=== PATIENT | male | born 1960 | race Caucasian/White ===

== ENCOUNTER 2025-02-26 16:10 | Emergency (ER) | payer OTHER, SELFPAY ==
--- NOTE | 2025-02-26 16:12 | ED.URI ---
HPI - URI/Sore Throat General Chief Complaint: Neck Pain/Injury Stated Complaint: Right Side Neck Pain,Swelling Time Seen by Provider: 02/26/25 16:11 Source: patient Mode of arrival: ambulatory Limitations: no limitations History of Present Illness HPI Narrative: Tate is a 64-year-old male patient presenting to the clinic today with complaints of right side neck swelling and pain x2 days. He reports the swelling has gone down some. Denies sore throat, dental pain, sinus congestion, URI symptoms, or fever. States he has been feeling sweaty and overall not feeling well. Coughing up some gelatinous phlegm, Feels as though he has a knot over his right eustachian tube. MD elicited complaint: sore throat and nasal congestion Related Data Allergies Allergy/AdvReac Type Severity Reaction Status Date / Time Penicillins Allergy Intermediate HIVES Verified 02/26/25 16:12 Review of Systems Review of Systems: Pertinent positives per HPI. Patient denies any fever, chills, rash, headache, visual changes, dizziness, cough, shortness of breath, chest pain, palpitations, nausea, vomiting, diarrhea, constipation, abdominal pain, or any urinary issues. PMFSH Comments At the time of my signature, I reviewed and agree with the nursing past medical, surgical, social, and family history. There is no relevant family history pertinent to the patient complaint. Exam Narrative: General: Well-developed, well nourished, in no apparent distress Head: Normocephalic, atraumatic Eyes: Pupils equally round and reactive to light bilaterally, EOM intact, sclera and conjunctive clear, no discharge, lids normal Ears: TMs intact, congested, and opaque, ear canals clear, no drainage, grossly hearing normal. Nose: Nares patent, clear discharge, no inflammation, no sinus tenderness. Mouth: Oral pharynx red with bilateral tonsillar enlargement without lesions or masses, good dentition, MMM. Neck: Supple, trachea midline, enlargement of right anterior cervical nodes, no thyroid masses or goiter palpable. Cardio: Regular rate and rhythm, s1 and s2 normal, no murmur appreciated. Resp: Clear to auscultation bilaterally, no rhonchi, rales, wheezing or rubs Course Course Emergency Course: Portions of this record may have been created with voice recognition software. Level of Care: Express Care Visit Vital Signs Vital signs: Vital Signs Temperature 36.9 C 02/26/25 16:22 Pulse Rate 89 02/26/25 16:22 Respiratory Rate 18 02/26/25 16:22 Blood Pressure 169/86 H 02/26/25 16:22 Pulse Oximetry 99 02/26/25 16:22 Oxygen Delivery Room Air 02/26/25 16:22 Temperature 36.9 C 02/26/25 16:22 Pulse Rate 89 02/26/25 16:22 Respiratory Rate 18 02/26/25 16:22 Blood Pressure 169/86 H 02/26/25 16:22 Pulse Oximetry 99 02/26/25 16:22 Oxygen Delivery Room Air 02/26/25 16:22 Vital signs reviewed MDM - URI/Sore Throat MDM Narrative Medical decision making narrative: At the time of visit patient is resting comfortably on the exam table. Patient appears to be nontoxic. Complaints of right side neck swelling and pain x2 days. He reports the swelling has gone down some. Denies sore throat, dental pain, sinus congestion, URI symptoms, or fever. States he has been feeling sweaty and overall not feeling well. Coughing up some gelatinous phlegm, Feels as though he has a knot over his right eustachian tube. On exam patient has bilateral tonsillar enlargement with right-sided anterior cervical lymphadenopathy, clear nasal drainage. TMs intact, congested, and opaque. Strep test was ordered. Labs: Strep test was performed and negative in the clinic today. We will send strep for culture. Plan: Patient has right-sided cervical lymphadenopathy. Recommend follow-up with PCP in 1 week if symptoms persist for labs last ultrasound. If symptoms worsen recommend going to the emergency room. Supportive measures were discussed with the patient and they voiced understanding discharge instructions and agrees to treatment plan. Return precautions reviewed Differential Diagnosis Differential diagnosis: Likely upper respiratory infection, otitis media, sinusitis, viral infection, bronchitis, influenza, pharyngitis and other (Cervical lymphadenitis) Lab Data Labs: Lab Results 02/26/25 02/26/25 Range/Units 16:46 16:46 POC Grp A Strep Screen Negative Negative (Negative) Discharge Plan Discharge Clinical Impression: Acute cervical lymphadenitis Patient Disposition: Home Condition: Stable Instructions: Antibiotic Form, Lymphadenopathy (ED) Additional Instructions: No sign of bacterial infection in the clinic today. Strep test was negative in the clinic today. We will send strep for culture. Cervical lymph node swelling can be also caused by viruses. Increase fluids and stay well hydrated May take Tylenol/Motrin as needed for pain as per bottle directions. If symptoms persist more than 7-10 days recommend follow-up with your PCP for blood work and ultrasound. Patient Language: Sammarinese Follow-up/Referrals: UNKNOWN,DOCTOR [Non-Staff] Time of Disposition: 16:52 Quality NIHSS Nursing Documentation ED NIHSS nursing documentation: reviewed/agree
--- OUTSIDE RECORDS SUMMARY | 2025-02-26 16:13 | XMS_ITS | Clinical Summary ---
Author Organization [facility] perial Address [address] [place] [address] Phone Care Team Providers Care Employee Counselor Name Role Phone Radha An MD Primary Care Provider Allyson vailable Allergies Active Allergy Reactions Criticality Noted Date Comments Amoxicillin Rash Low 01/15/2018 Medications No known medications Active Problems Problem Noted Date Diagnosed Date Cigarette dependence 04/17/2018 Encounters Date Type Department Care Team Description 01/26/2025 External Device Data [facility]STRACTION Provider, Abstract 12/29/2024 External Device Data [facility] Provider, Abstract 12/01/2024 External Device Data [facility] Provider, Abstract 11/26/2024 External Device Data [facility] Provider, Abstract from Last 3 Months Family History Medical History Relation Name Comments No Known Problems Brother Cancer Father prostate Stroke Father Cancer Mother lymphoma Relation Name Status Comments Brother Father Mother Social History Tobacco Use Types Packs/Day Years Used Date Smoking Tobacco: Every Day Cigarettes 0.8 8 Smokeless Tobacco: Never Tobacco Cessation:Ready to Q uit: Not Asked; Counseling Given: Not Answered Alcohol Use Standard Drinks/Week Comments No 0 (1 standard drink = 0.6 oz pur e alcohol) Sex and Gender Information Value Date Recorded Sex Assigned at Not on file Legal Sex Male 4:12 PM CDT Gender Identity Not on file Sexual Orientation Not on file Last Filed Vital Signs Vital Sign Reading Time Taken Comments Blood Pressure 150/100 06/05/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 Pulse 80 06/05/2024 5:24 PM SECURITY SYSTEMS MANAGER Temperature 36.4 C (97.6 F) 06/05/2024 5:21 PM SECURITY SYSTEMS MANAGER Respiratory Rate 14 06/05/2024 5:21 PM SECURITY SYSTEMS MANAGER Oxygen Saturation 96% 06/05/2024 5:21 PM SECURITY SYSTEMS MANAGER Inhaled Oxygen Concentration - - Weight 77.1 kg (170 lb) 06/05/2024 5:21 PM SECURITY SYSTEMS MANAGER Height 167.6 cm (5' 6) 06/05/2024 5:21 PM SECURITY SYSTEMS MANAGER Body Mass Index 27.44 06/05/2024 5:21 PM SECURITY SYSTEMS MANAGER Plan of Treatment Health Maintenance Due Date Last Done Comments Pre-Diabetes and Diabetes Screening 1960 DTAP/TDAP/TD VACCINES (1 - Tdap) 12/12/1979 FIT-DNA Q 3 years 2005 FIT/FOBT Q 1 year 2005 Flex Sig/CT Colonography Q 5 years 2005 ZOSTER VACCINE (1 of 2) 2010 INFLUENZA VACCINE (#1) 2025 COLORECTAL SCREENING 10/27/2028 10/27/2018, 10/27/2018, 10/27/2018 Colorectal Cancer Screening 10/27/2028 RSV VACCINE (60+ or ) (1 - 1-dose 75+ series) 12/12/2035 Procedures Procedure Name Priority Date/Time Associated Diagnosis Comments ENDOSCOPY, COLON, SCREENING Routine 10/27/2018 Blood in stool from Last 3 Months or Most Recently Relevant to Health Maintenance Results * ENDOSCOPY, COLON, SCREENING (10/27/2018) Radha An MD GI PROCEDURE ORDERABLES nal Result [facility] CLIA# [id number] [address] [place] [address] from Last 3 Months or Most Recently Relevant to Health Maintenance Insurance [employer] PPO [id number] [employer] [facility] [id number] Care Teams Employee Counselor Relationship Specialty Start Date End Date Radha An MD PCP - General Family Practice 04/17/18
--- OUTSIDE RECORDS SUMMARY | 2025-02-26 16:13 | XMS_ITS | Clinical Summary ---
Author Organization [facility] Address [address] [place] [address] Care Team Providers Care Auto Washer Name Role Phone Radha An MD Primary Care Provider [phone] Allergies Active Allergy Reactions Criticality Noted Date Comments Amoxicillin Hives Medium 10/17/2018 Medications methylPREDNISol one (MEDROL DOSEPACK) 4 mg Dosepack Take 4 mg by mouth Take as directed on package Active hydrocortisone 1 % cream Apply topically 2 (two) times a day Active Active Problems Problem Noted Date Diagnosed Date Encounter for screening colonoscopy 10/20/2018 Overview (10/20/2018): Added automatically from request for surgery [id number] Blood in stool 10/20/2018 Overview (10/20/2018): Added automatically from request for surgery [id number] Abdominal bloating 10/17/2018 Assessment & Plan (10/17/2018 2:48 PM CDT): 02/22 gastroenteritis with N and D. Since then migratory and intermittent abd pain s and now cc of bloating. Currently single formed bm/d and PMD found occult positive. PE today neg so will schedule colonoscopy. Discussed post GE IBS. Surgical History Surgery Date Site/Laterality Comments VASECTOMY 07/08/2007 - 07/07/2008 COLONOSCOPY 10/27/2018 1st Medical History Medical History Date Comments Occult blood positive stool Family History Medical History Relation Name Comments Prostate cancer Father Lymphoma Mother Relation Name Status Comments Father (Age 81) Mother (Age 84) Social History Tobacco Use Types Packs/Day Years Used Date Smoking Tobacco: Every Day Cigarettes Smokeless Tobacco: Never Tobacco Cessation:Ready to Q uit: No; Counseling Given: Yes Alcohol Use Standard Drinks/Week Comments Not Currently 0 (1 standard drink = 0.6 oz pur e alcohol) Personal Safety Answer Date Recorded Getting School Help Needed Not on file 09/21 Sex and Gender Information Value Date Recorded Sex Assigned at Not on file 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 Gender Identity Not on file Sexual Orientation Not on file Obstetrics History Last Filed Vital Signs Vital Sign Reading Time Taken Comments Blood Pressure 118/74 10/27/2018 12:25 PM CDT Pulse 78 10/27/2018 12:25 PM CDT Temperature 36 C (96.8 F) 10/27/2018 12:25 PM CDT Respiratory Rate 18 10/27/2018 12:25 PM CDT Oxygen Saturation 100% 10/27/2018 12:25 PM CDT Inhaled Oxygen Concentration - - Weight 76.2 kg (168 lb) 10/27/2018 11:12 AM CDT Height 167.6 cm (5' 6) 10/27/2018 11:12 AM CDT Body Mass Index 27.12 10/27/2018 11:12 AM CDT Plan of Treatment Not on file [place] [address] Advance Directives For more information, please contact: [phone] * Full Code (Latest Code Status on File) Date Activated Date Inactivated Comments 10/27/2018 10:58 AM 10/27/2018 4:35 PM * Full Code Date Activated Date Inactivated Comments 10/27/2018 10:58 AM 10/27/2018 10:58 AM Care Teams Auto Washer Relationship Specialty Start Date End Date Radha An MD [address] [place] [address] PCP - General Internal Medicine 09/04/18
[2025-02-26 16:22] VITALS: BP 169/86; PULSE 89; RESP 18; TEMP 36.9; O2SAT 99
[2025-02-26 16:47] LABS: EDSTREPNEGPOS1 Negative (Negative)
== END 2025-02-26 16:58 | disposition home or self-care (01) ==
PROVIDERS: Emergency Provider Nurse Practitioner Family
DX: I88.9 Nonspecific lymphadenitis, unspecified (principal)
CPT/HCPCS: 87081; 87880; 99203; G0463